=== PATIENT | male | born 1980 | race Caucasian/White ===

== ENCOUNTER 2017-07-04 13:17 | Emergency (ER) | payer OTHER ==
[~2017-07-04] VITALS: Ht 177.8 cm; Wt 63.5 kg
[~2017-07-04 13:17] MED LIST: ADDERALL30 MG PO; BENADRYL25 MG PO; CATAFLAM50 MG PO; CLEOCIN HCL150 MG PO; CLINDAMYCIN150 MG PO; FLUCONAZOLE100 MG PO; HYDROCODONE BIT1 T11 PO; KEFLEX500 MG PO; LOMOTIL 0.025 M1 TA1 PO; MOTRIN600 MG PO; MOTRIN800 MG PO; NAPROSYN500 MG PO; NKHM; PEN-VEE K500 MG PO; PREDNICOT20 MG PO; PREDNISONE10 MG PO; PREDNISONE20 M1 PO; PRILOSEC20 MG PO; TRAMADOL HCL50 MG PO; ULTRAM50 MG PO; VICODIN ES 7501 TAB PO; XANAX0.25 MG PO; ZOFRAN ODT4 MG SL
[2017-07-04 14:51] LABS: BASO # 0.1 10*3/uL (0.0-0.1); BASO % 0.6 % (0.0-1.0); EOS # 0.3 10*3/uL (0.0-0.4); EOS % 3.2 % (1.0-4.0); HEMATOCRIT 42.8 % (42.0-52.0); HEMOGLOBIN 15.3 g/dl (14.0-18.0); LYMPH # 2.3 10*3/uL (1.3-4.4); LYMPH % 26.6 % (27.0-41.0); MEAN CELL VOLUME 94.7 fl (80.0-94.0); MEAN CORPUSCULAR HGB 33.8 pg (27.0-31.0); MEAN CORPUSCULAR HGB CONC 35.7 g/dl (33.0-37.0); MEAN PLATELET VOLUME 9.9 fl (9.6-12.3); MONO # 0.8 10*3/uL (0.1-1.0); MONO % 9.4 % (3.0-9.0); NEUT # 5.2 10*3/uL (2.3-7.9); PLATELET COUNT AUTOMATED 192 10*3/uL (130-400); RED BLOOD COUNT 4.52 10*6/uL (4.50-5.90); RED CELL DISTRI WIDTH 11.4 % (0-14.5); WHITE BLOOD COUNT 8.7 10*3/uL (4.8-10.8)
[2017-07-04 15:05] LABS: ALKALINE PHOSPHATASE 90 U/L (45-117); BUN 14 mg/dl (7-24); CHLORIDE 106 mmol/L (98-107); POTASSIUM 4.2 mmol/L (3.5-5.1); SGOT/AST 20 IU/L (3-35); SGPT/ALT 25 U/L (12-78); SODIUM 139 mmol/L (136-145)
[2017-07-04] MEDS ORDERED: PERCOCET 5-3251 EACH PO (15:14)
[2017-07-04] MEDS ORDERED: ZOFRAN4 MG PO (15:14)
[2017-07-04] MEDS ORDERED: SEPTDS PO (15:14)
[2017-07-04 15:20] LABS: BILIRUBIN NEGATIVE (NEGATIVE); BLOOD TRACE-LYSED (NEGATIVE); CLARITY SL CLOUDY (CLEAR); COLOR YELLOW (YELLOW); GLUCOSE NEGATIVE (NEGATIVE); KETONE NEGATIVE (NEGATIVE); LEUKO ESTERASE NEGATIVE (NEGATIVE); NITRITE NEGATIVE (NEGATIVE); PH 6.5 (5.0-9.0); SPECIFIC GRAVITY <= 1.005 (1.005-1.030); UROBILINOGEN 0.2 E.U./dl (0.2-1.0)
[2017-07-04 15:36] LABS: BACTERIA 1+; EPITHELIAL CELLS 0-2; RBC 0-2 rbc/hpf (0-2)
[2017-07-04 15:37] LABS: FINE GRANULAR CAST 0-2
== END 2017-07-04 15:42 | disposition home or self-care (01) ==
LOC: ED 13:17
PROVIDERS: Nurse Practitioner Family
DX: N20.0 Calculus of kidney (principal); R03.0 Elevated blood-pressure reading, without diagnosis of hypertension; F17.200 Nicotine dependence, unspecified, uncomplicated; Z79.899 Other long term (current) drug therapy

== ENCOUNTER 2017-07-22 19:47 | Emergency (ER) | payer OTHER ==
[~2017-07-22] VITALS: Ht 177.8 cm; Wt 63.5 kg
[~2017-07-22 19:47] MED LIST changes: +PERCOCET 5-3251 EACH PO; +SEPTDS PO; +ZOFRAN4 MG PO
== END 2017-07-22 22:24 | disposition home or self-care (01) ==
LOC: ED 19:47
DX: M25.461 Effusion, right knee (principal); R60.0 Localized edema; M25.571 Pain in right ankle and joints of right foot; F17.200 Nicotine dependence, unspecified, uncomplicated; Z79.899 Other long term (current) drug therapy; W10.8XXA Fall (on) (from) other stairs and steps, initial encounter; Y93.89 Activity, other specified; Y92.89 Other specified places as the place of occurrence of the external cause; Y99.9 Unspecified external cause status

== ENCOUNTER 2017-09-21 16:29 | Emergency (ER) | payer SELFPAY ==
[~2017-09-21] VITALS: Ht 177.8 cm; Wt 63.5 kg
[2017-09-21 16:49] LABS: BASO # 0.1 10*3/uL (0.0-0.1); BASO % 0.5 % (0.0-1.0); EOS # 0.2 10*3/uL (0.0-0.4); EOS % 1.9 % (1.0-4.0); HEMATOCRIT 46.2 % (42.0-52.0); HEMOGLOBIN 16.6 g/dl (14.0-18.0); LYMPH # 2.9 10*3/uL (1.3-4.4); LYMPH % 24.8 % (27.0-41.0); MEAN CELL VOLUME 95.1 fl (80.0-94.0); MEAN CORPUSCULAR HGB 34.2 pg (27.0-31.0); MEAN CORPUSCULAR HGB CONC 35.9 g/dl (33.0-37.0); MEAN PLATELET VOLUME 9.8 fl (9.6-12.3); MONO # 0.6 10*3/uL (0.1-1.0); MONO % 5.4 % (3.0-9.0); NEUT # 7.8 10*3/uL (2.3-7.9); NEUT % 67.1 % (47.0-73.0); PLATELET COUNT AUTOMATED 233 10*3/uL (130-400); RED BLOOD COUNT 4.86 10*6/uL (4.50-5.90); RED CELL DISTRI WIDTH 11.6 % (0-14.5); WHITE BLOOD COUNT 11.6 10*3/uL (4.8-10.8)
[2017-09-21 17:03] LABS: ACT PARTIAL THROMBO TIME 25.8 SECONDS (20.8-31.5)
[2017-09-21 17:09] LABS: ALBUMIN 4.2 gm/dl (3.1-4.5); ALKALINE PHOSPHATASE 97 U/L (45-117); BUN 18 mg/dl (7-24); CHLORIDE 108 mmol/L (98-107); CREATININE 1.02 mg/dL (0.70-1.30); SGOT/AST 19 IU/L (3-35); SGPT/ALT 27 U/L (12-78); SODIUM 142 mmol/L (136-145); TOTAL PROTEIN 7.7 gm/dL (6.4-8.2)
[2017-09-21 17:12] LABS: TROPONIN I < 0.015 ng/ml (<0.045)
== END 2017-09-21 19:11 | disposition home or self-care (01) ==
LOC: ED 16:29
PROVIDERS: Student in an Organized Health Care Education/Training Program
DX: R07.89 Other chest pain (principal); F17.200 Nicotine dependence, unspecified, uncomplicated

== ENCOUNTER 2018-04-05 22:12 | Emergency (ER) | payer SELFPAY ==
[~2018-04-05] VITALS: Ht 180.3 cm; Wt 63.5 kg
[2018-04-05] MEDS ORDERED: PREDNISONE20 M1 PO (22:32)
[2018-04-05] MEDS ORDERED: BENADRYL25 M2 PO (22:32)
== END 2018-04-05 23:39 | disposition home or self-care (01) ==
LOC: ED 22:12
DX: L25.9 Unspecified contact dermatitis, unspecified cause (principal)

== ENCOUNTER 2018-07-19 15:32 | Inpatient (IN) | payer SELFPAY ==
[~2018-07-19] VITALS: Ht 180.3 cm; Wt 68.7 kg
--- NOTE | ~2018-07-19 | EKG ---
[place], [place] ELECTROCARDIOGRAM REPORT NAME: RYAN LAWRENCE UNIT #: [id number] ROOM: 415 DOCTOR: CHERRI DRAFT REPORT BIRTHDATE: [address] [facility] Test Date: 2018-07-19 Test Time: 18:59:32 Pat Name: RYAN LAWRENCE Department: Room: 415 Gender: M [place] City: [place] : 1980 Requested By: ELVIE GAFFNEY Order Number: [id number] Reading MD: Chandana Wharton MD Measurements Intervals [place] Rate: 54 P: 71 WI: 111 QRS: 88 QRSD: 87 T: 58 QT: 418 QTc: 397 Interpretive Statements Sinus rhythm Borderline short WI interval ST elev, probable normal early repol pattern Electronically Signed On 07-21-2018 12:04:19 PST by Chandana Wharton MD CM:EKGRPT:ELECTROCARDIOGRAM REPORT [id number] ELVIE ODOM DRAFT REPORT ELVIE GAFFNEY DO
--- NOTE | ~2018-07-19 | PR ---
[place], [place] PROGRESS NOTE NAME: RYAN LAWRENCE UNIT #: [id number] ROOM: 415 DOCTOR: MOY CHARLES MD BIRTHDATE: [birth year] DOS: 07/20/2018 NEPHROLOGY PROGRESS NOTE TIME OF SERVICE: 10:40 a.m. Follow up of acute kidney injury. SUBJECTIVE: The patient is eating and drinking well. There are no reported complaints otherwise. Continues to deny the use of any illicit drugs recently and unclear how he had cocaine in his urine drug screen from the ER. IV fluids are continuing at this time, but given his oral intake and good urine output, creatinine has slowly improved. No other acute complaints on review of systems identified. PHYSICAL EXAMINATION: VITAL SIGNS: 132/80, 18, 95, 98.0. GENERAL: Awake, alert and oriented, no acute distress, pleasant mood and affect. Speech clear and cogent. Memory is intact. LUNGS: Clear bilaterally. No rales or wheeze. CARDIOVASCULAR: Regular rate. No rub. ABDOMEN: Soft, nontender, no CVA tenderness. EXTREMITIES: No peripheral edema of significance. No muscle tenderness or joint effusions. LABORATORY DATA AND DIAGNOSTICS: White blood cell count 8.2, hemoglobin 12.7, platelets 135. Sodium 143, potassium 4.6, chloride 115, bicarbonate 21, BUN 31, creatinine 4.52 down from 5.42. Urinalysis bland, no proteinuria. Renal ultrasound negative. ASSESSMENT AND PLAN: Acute kidney injury, likely acute tubular necrosis from prerenal causes, status post IV fluids, oral intake now improved. Avoid more protein supplements at this time and we will continue to follow. I would like to see how he does off of IV fluids. After the current bag is completed, discontinue IV fluids and encourage oral solute and fluid intake. If his creatinine continues to improve by the morning, he can be discharged with outpatient BMPs weekly until a peg creatinine is reached. No indication for dialysis or biopsy at this time. I counseled the patient on avoidance of any supplements or NSAIDs, nephrotoxic medications or illicit drug use. [place], [place] PROGRESS NOTE NAME: RYAN LAWRENCE UNIT #: [id number] ROOM: 415 DOCTOR: MOY CHARLES MD BIRTHDATE: [birth year] MOY CHARLES MD CM:DONATO 13 25 MOY CHARLES MD 07/21/[id number] interface
--- NOTE | ~2018-07-19 | EKG ---
[place], [place] ELECTROCARDIOGRAM REPORT NAME: RYAN LAWRENCE UNIT #: [id number] ROOM: 415 DOCTOR: CHERRI DRAFT REPORT BIRTHDATE: [birth year] [facility] Test Date: 2018-07-21 Test Time: 00:58:10 Pat Name: RYAN LAWRENCE Department: Room: 415 2 Gender: M Mat Cutter: Rufino Zayas : 1980 Requested By: NIMISHA PAEZ Order Number: [id number] Reading MD: Chandana Wharton MD Measurements Intervals [place] Rate: 50 P: 65 MN: 107 QRS: 84 QRSD: 90 T: 56 QT: 417 QTc: 381 Interpretive Statements Sinus rhythm Short [place] interval ST elev, probable normal early repol pattern Baseline wander in lead(s) I,II,aVR Electronically Signed On 07-21-2018 12:04:15 PST by Chandana Wharton MD CM:EKGRPT:ELECTROCARDIOGRAM REPORT [id number] NIMISHA PAEZ DO EPIPHANY DRAFT REPORT NIMISHA PAEZ DO
[~2018-07-19 15:32] MED LIST changes: +BENADRYL25 M2 PO
[2018-07-19 15:34] VITALS: BP 145/84
[2018-07-19 15:54] LABS: BILIRUBIN NEGATIVE (NEGATIVE); BLOOD TRACE-INTACT (NEGATIVE); CLARITY CLEAR (CLEAR); COLOR YELLOW (YELLOW); GLUCOSE NEGATIVE (NEGATIVE); KETONE NEGATIVE (NEGATIVE); LEUKO ESTERASE NEGATIVE (NEGATIVE); NITRITE NEGATIVE (NEGATIVE); PH 5.5 (5.0-9.0); UROBILINOGEN 0.2 E.U./dl (0.2-1.0)
[2018-07-19 15:55] LABS: BASO # 0.1 10*3/uL (0.0-0.1); BASO % 0.6 % (0.0-1.0); EOS # 0.3 10*3/uL (0.0-0.4); EOS % 3.5 % (1.0-4.0); HEMATOCRIT 37.8 % (42.0-52.0); HEMOGLOBIN 13.3 g/dl (14.0-18.0); LYMPH # 2.1 10*3/uL (1.3-4.4); LYMPH % 23.2 % (27.0-41.0); MEAN CELL VOLUME 96.4 fl (80.0-94.0); MEAN CORPUSCULAR HGB 33.9 pg (27.0-31.0); MEAN CORPUSCULAR HGB CONC 35.2 g/dl (33.0-37.0); MEAN PLATELET VOLUME 10.3 fl (9.6-12.3); MONO # 0.8 10*3/uL (0.1-1.0); MONO % 8.9 % (3.0-9.0); NEUT # 5.7 10*3/uL (2.3-7.9); NEUT % 63.4 % (47.0-73.0); PLATELET COUNT AUTOMATED 134 10*3/uL (130-400); RED BLOOD COUNT 3.92 10*6/uL (4.50-5.90); RED CELL DISTRI WIDTH 11.5 % (0-14.5)
[2018-07-19 16:08] LABS: BACTERIA TRACE; EPITHELIAL CELLS 0-3
[2018-07-19 16:10] LABS: ALBUMIN 3.6 gm/dl (3.1-4.5); CREATININE 5.42 mg/dL (0.70-1.30); POTASSIUM 4.6 mmol/L (3.5-5.1); TOTAL PROTEIN 6.5 gm/dL (6.4-8.2)
[2018-07-19 16:40] VITALS: BP 141/87
[2018-07-19 17:28] LABS: URINE AMPHETAMINES < 1000 (1000ng/ml); URINE BARBITURATES < 200 (200ng/ml); URINE BENZODIAZEPINES < 200 (200ng/ml); URINE CANNABINOIDS (THC) < 50 (50ng/ml); URINE COCAINE > 300 (300ng/ml); URINE METHADONE < 300 (300ng/ml); URINE OPIATES < 300 (300ng/ml)
[2018-07-19 17:29] LABS: URINE PHENCYCLIDINE < 25 (25ng/ml)
[2018-07-19 17:58] VITALS: BP 119/79
--- NOTE | 2018-07-19 18:14 | NUR ---
PHYSICIAN WAS NOTIFIED OF DR. CHARLES CONSULT. RESPONSE OF NOTIFICATION WAS OK I WILL SEE HIM. DR CHARLES WAS ON THE FLOOR AT TIME OF CONSULT. CHINTAN DIOP
--- NOTE | 2018-07-19 18:25 | NUR ---
A 37, admitted to , under the services of EMANUEL Kellogg DO with a diagnosis of ACUTE RENAL FAILURE. Chief complaint is PAIN. Patient arrived via wheel chair from ER. Monitor applied. Initial assessment completed. Vital signs taken and recorded. EMANUEL KELLOGG DO notified of admission to the unit. Orders received. See assessment for past medical history, medications and allergies. Patient and/or family oriented to unit. [facility] policy reviewed. Clothing/patient valuable form completed. CHINTAN DIPO
--- NOTE | 2018-07-19 18:49 | NUR ---
PT DENIES TAKING ANY HOME MEDS. MED REC UPDATED
[2018-07-19 19:10] VITALS: BP 133/75
[2018-07-19 20:00] VITALS: BP 126/79
--- NOTE | 2018-07-19 22:03 | NUR ---
PT STATES TYLENOL IS EFFECTIVE FOR PAIN. WILL CONTINUE TO MONITOR. ALL SAFETY MEASURES IN PLACE.
[2018-07-19 22:16] LABS: URINE CREATININE RANDOM 70.5 mg/dL
[2018-07-20] VITALS: BP 131/71
--- NOTE | 2018-07-20 04:58 | NUR ---
PATIENT C/O FEELING ACHY AND NAUSEOUS, MEDICATED WITH PO PRN ZOFRAN AND PO PRN TYLENOL, WILL MONITOR FOR EFFECTIVENESS. CALL LIGHT WITHIN REACH.
[2018-07-20 07:08] LABS: BASO % 0.5 % (0.0-1.0); EOS # 0.3 10*3/uL (0.0-0.4); EOS % 3.9 % (1.0-4.0); HEMATOCRIT 36.3 % (42.0-52.0); HEMOGLOBIN 12.7 g/dl (14.0-18.0); LYMPH # 1.8 10*3/uL (1.3-4.4); LYMPH % 22.5 % (27.0-41.0); MEAN CORPUSCULAR HGB 33.6 pg (27.0-31.0); MEAN PLATELET VOLUME 10.7 fl (9.6-12.3); MONO # 0.6 10*3/uL (0.1-1.0); MONO % 7.7 % (3.0-9.0); NEUT # 5.3 10*3/uL (2.3-7.9); NEUT % 65.2 % (47.0-73.0); PLATELET COUNT AUTOMATED 135 10*3/uL (130-400); RED BLOOD COUNT 3.78 10*6/uL (4.50-5.90); RED CELL DISTRI WIDTH 11.4 % (0-14.5); WHITE BLOOD COUNT 8.2 10*3/uL (4.8-10.8)
[2018-07-20 07:16] LABS: ACT PARTIAL THROMBO TIME 25.3 SECONDS (20.8-31.5)
[2018-07-20 07:43] LABS: ALBUMIN 2.9 gm/dl (3.1-4.5); CREATININE 4.52 mg/dL (0.70-1.30); FREE T4 0.98 ng/dl (0.76-1.46); PHOSPHOROUS 3.8 mg/dL (2.5-4.9); POTASSIUM 4.6 mmol/L (3.5-5.1); TOTAL PROTEIN 5.7 gm/dL (6.4-8.2)
[2018-07-20 07:48] LABS: THYROID STIM HORMONE (HS) 1.56 uIU/ml (0.358-4.75)
[2018-07-20 08:00] VITALS: BP 132/80
[2018-07-20 08:41] LABS: VITAMIN D, 25-HYDROXY 13.9 ng/mL (30-100)
--- NOTE | 2018-07-20 09:00 | NUR ---
[employer]el[employer] in to talk to patient. Patient states lives at home with . There are few steps in the home. Physician: elidia avila [facility] Home health services: none Patient's level of ADLs: INDEPENDENT Patient has working utilities: all working DME: none Follow-up physician's appointment after d/c: will be made by hospitalist nurse director upon discharge Does patient want to access PORTAL?: no Discharge plan discussed with patient, patient states he lives at home with and children, he is independent in adls and ambulation. patient states he will be going home when able and denies any home needs. case management discussed with him being self pay, patient stated that his insurance will be ineffect tomorrow Jul,. patient stated that Jasmin from [employer] spoke with him and gave him a form to fill out to help with the hospital stay. patient denies any other needs at this time. CARIDAD FISCHER
[2018-07-20 12:00] VITALS: BP 118/95; BP 130/87
[2018-07-20 16:00] VITALS: BP 142/81
--- NOTE | 2018-07-20 18:20 | NUR ---
PATIENT MEDICATED WITH TYLENOL AND ZOFRAN AT THIS TIME FOR COMPLAINTS OF STOMACH PAIN AND NAUSEA.
[2018-07-20 20:00] VITALS: BP 139/81
[2018-07-21] VITALS: BP 143/82
--- NOTE | 2018-07-21 00:48 | NUR ---
DR PAEZ NOTIFIED OF PT'S C/O A SHOOTING PAIN THAT STARTED IN HIS LOWER RT ABDOMINAL AREA AND SHOT ACROSS HIS CHEST TO HIS LT SHOULDER. PT REPORTS BEING SOB AND HAVING A COUGHING FIT. PT DENIES CHEST PAIN AT THE TIME OF ASSESSMENT. DENIES DIZZINESS/LIGHTHEADEDNESS. SPO2 96% ON ROOM AIR, VITALS STABLE.
[2018-07-21 03:43] LABS: BASO # 0.1 10*3/uL (0.0-0.1); BASO % 0.5 % (0.0-1.0); EOS # 0.4 10*3/uL (0.0-0.4); EOS % 3.5 % (1.0-4.0); HEMATOCRIT 36.2 % (42.0-52.0); HEMOGLOBIN 13.2 g/dl (14.0-18.0); LYMPH % 19.2 % (27.0-41.0); MEAN CELL VOLUME 94.3 fl (80.0-94.0); MEAN CORPUSCULAR HGB 34.4 pg (27.0-31.0); MEAN CORPUSCULAR HGB CONC 36.5 g/dl (33.0-37.0); MEAN PLATELET VOLUME 10.7 fl (9.6-12.3); MONO # 0.8 10*3/uL (0.1-1.0); MONO % 7.7 % (3.0-9.0); NEUT # 7.2 10*3/uL (2.3-7.9); NEUT % 68.8 % (47.0-73.0); PLATELET COUNT AUTOMATED 155 10*3/uL (130-400); RED BLOOD COUNT 3.84 10*6/uL (4.50-5.90); RED CELL DISTRI WIDTH 11.3 % (0-14.5); WHITE BLOOD COUNT 10.4 10*3/uL (4.8-10.8)
[2018-07-21 03:54] LABS: CREATININE 3.97 mg/dL (0.70-1.30); POTASSIUM 4.5 mmol/L (3.5-5.1)
[2018-07-21 08:00] VITALS: BP 120/82; BP 125/78
[2018-07-21 12:00] VITALS: BP 133/82
--- NOTE | 2018-07-21 15:43 | NUR ---
SPOKE WITH DR. CASTILLO AT THIS TIME ABOUT PATIENTS CONCERN WITH PATIENT PLAN OF CARE. DR. CASTILLO STATED THAT THE PATIENT IS IMPROVING AND HE DOESNT THINK THE PATIENT NEEDS TO BE IN THE HOSPITAL ANY LONGER. STATED TO ENCOURAGE PO FLUIDS AND THAT THE PATIENT WILL NEED A WEEKLY BMP ON DISCHRAGE.
--- NOTE | 2018-07-21 15:50 | NUR ---
UPDATED PATIENT'S FAMILY ON PLANS PER DR. CHARLES. FAMILY STATED THEY WANT TO TALK TO HOSPITALIST DOCTOR. DR. GASPAR CALLED, STATED SHE WILL COME TALK TO PATIENT'S FAMILY.
[2018-07-21 16:00] VITALS: BP 168/89
--- NOTE | 2018-07-21 18:04 | NUR ---
Discharge instructions reviewed with patient/family. Patient receptive and verbalizes understanding. Follow-up care arranged. Written instructions given to patient/family. WENT OVER DISCHRAGE PACKET WITH PATIENT. PATIENT AWARE OF THE NEED TO GET OUTPATIENT LABS ON 07/24/17. PATIENT ALSO AWARE OF HIS FOLLOW UP APPOINTMENT WITH CHRISTOPHER GARCIA NP. IV REMOVED, PATIENT TOLERATED WELL. HEART MONITOR REMOVED AND PLACED IN NURSES STATION. PATIENT DENIES ANY NEEDS OR CONPLAINTS AT THIS TIME. PATIENT AMBULATED OFF OF FLOOR WITH FAMILY AT THIS TIME. RUSS RIVERS
[2019-02-20] MEDS ORDERED: CEPHALEXIN500 M1 PO (20:31)
[2019-02-20] MEDS ORDERED: LOTRISONE 0.05%45 GM T (20:36)
== END 2018-07-21 18:25 | disposition home or self-care (01) | DRG 684 ==
LOC: ED 15:32 → EDHOLD 16:30 → 4E 18:26
PROVIDERS: Internal Medicine; Internal Medicine Nephrology; Nurse Practitioner Family; ADMIT Internal Medicine
DX: N17.0 Acute kidney failure with tubular necrosis (principal); R00.1 Bradycardia, unspecified; D72.810 Lymphocytopenia; R31.29 Other microscopic hematuria; F17.210 Nicotine dependence, cigarettes, uncomplicated; D53.9 Nutritional anemia, unspecified; E87.8 Other disorders of electrolyte and fluid balance, not elsewhere classified; R89.7 Abnormal histological findings in specimens from other organs, systems and tissues; F14.10 Cocaine abuse, uncomplicated; F32.9 Major depressive disorder, single episode, unspecified; E83.41 Hypermagnesemia; Z71.6 Tobacco abuse counseling; Z87.442 Personal history of urinary calculi

== ENCOUNTER → 2018-07-23 | Outpatient (CLI) | payer BC ==
[2018-07-23 18:44] LABS: CREATININE 2.23 mg/dL (0.70-1.30); POTASSIUM 3.8 mmol/L (3.5-5.1)
== END | disposition home or self-care (01) ==
LOC: LAB 17:59
PROVIDERS: Student in an Organized Health Care Education/Training Program
DX: N17.0 Acute kidney failure with tubular necrosis (principal)

== ENCOUNTER 2019-01-02 12:48 | Emergency (ER) | payer BC ==
[~2019-01-02] VITALS: Ht 180.3 cm; Wt 63.5 kg
[2019-02-20] MEDS ORDERED: CEPHALEXIN500 M1 PO (20:31)
[2019-02-20] MEDS ORDERED: LOTRISONE 0.05%45 GM T (20:36)
[2019-03-12] MEDS ORDERED: TEMOVATE30 GM T ×2 (13:16→13:19)
== END 2019-01-02 14:10 | disposition home or self-care (01) ==
LOC: ED 12:48
DX: S69.92XA Unspecified injury of left wrist, hand and finger(s), initial encounter (principal); F17.210 Nicotine dependence, cigarettes, uncomplicated; W23.0XXA Caught, crushed, jammed, or pinched between moving objects, initial encounter; Y93.89 Activity, other specified; Y92.89 Other specified places as the place of occurrence of the external cause; Y99.8 Other external cause status

== ENCOUNTER 2019-02-22 18:01 | Emergency (ER) | payer BC ==
[~2019-02-22] VITALS: Ht 180.3 cm; Wt 65.8 kg
[~2019-02-22 18:01] MED LIST changes: +CEPHALEXIN500 M1 PO; +LOTRISONE 0.05%45 GM T
== END 2019-02-22 19:46 | disposition home or self-care (01) ==
LOC: ED 18:01
DX: T69.022A Immersion foot, left foot, initial encounter (principal); F17.210 Nicotine dependence, cigarettes, uncomplicated; Y92.89 Other specified places as the place of occurrence of the external cause

== ENCOUNTER 2019-04-18 17:24 | Emergency (ER) | payer BC ==
[~2019-04-18] VITALS: Wt 79.4 kg
[~2019-04-18 17:24] MED LIST changes: +TEMOVATE30 GM T
[2019-04-18] MEDS ORDERED: CEPHALEXIN500 M1 PO (17:41)
[2019-04-18] MEDS ORDERED: IBUPROFEN600 MG PO (19:29)
== END 2019-04-18 19:54 | disposition home or self-care (01) ==
LOC: ED 17:24
DX: S60.221A Contusion of right hand, initial encounter (principal); F17.210 Nicotine dependence, cigarettes, uncomplicated; X58.XXXA Exposure to other specified factors, initial encounter; Y93.89 Activity, other specified; Y92.098 Other place in other non-institutional residence as the place of occurrence of the external cause; Y99.8 Other external cause status

== ENCOUNTER 2021-07-13 16:01 | Emergency (ER) | payer OTHER ==
[~2021-07-13] VITALS: Wt 675.9 kg
[~2021-07-13 16:01] MED LIST changes: +IBUPROFEN600 MG PO
[2021-07-13] MEDS ORDERED: IBUPROFEN600 MG PO (20:48)
[2021-07-13] MEDS ORDERED: METHOCARBAMOL500 M1 PO (20:48)
== END 2021-07-13 20:49 | disposition home or self-care (01) ==
LOC: ED 16:01
DX: S13.4XXA Sprain of ligaments of cervical spine, initial encounter (principal); S63.591A Other specified sprain of right wrist, initial encounter; S43.491A Other sprain of right shoulder joint, initial encounter; X58.XXXA Exposure to other specified factors, initial encounter; Y93.89 Activity, other specified; Y92.89 Other specified places as the place of occurrence of the external cause; Y99.9 Unspecified external cause status

== ENCOUNTER 2021-09-20 06:37 | Emergency (ER) | payer OTHER ==
[~2021-09-20] VITALS: Ht 177.8 cm; Wt 77.1 kg
[~2021-09-20 06:37] MED LIST changes: +METHOCARBAMOL500 M1 PO
[2021-09-20] MEDS ORDERED: CYCLOBENZAPRINE5 M3 PO (07:56)
[2021-09-20] MEDS ORDERED: PREDNISONE50 MG PO (07:56)
== END 2021-09-20 08:27 | disposition home or self-care (01) ==
LOC: ED 06:37
DX: M62.838 Other muscle spasm (principal); M54.12 Radiculopathy, cervical region; F17.210 Nicotine dependence, cigarettes, uncomplicated

== ENCOUNTER 2021-12-13 13:31 | Emergency (ER) | payer OTHER ==
[~2021-12-13] VITALS: Ht 180.3 cm; Wt 63.5 kg
[~2021-12-13 13:31] MED LIST changes: +CYCLOBENZAPRINE5 M3 PO; +PREDNISONE50 MG PO
[2021-12-13] MEDS ORDERED: TERBINAFINE15 GM T (16:27)
== END 2021-12-13 16:33 | disposition home or self-care (01) ==
LOC: ED 13:31
DX: B35.3 Tinea pedis (principal)

== ENCOUNTER 2021-12-18 21:56 | Emergency (ER) | payer OTHER ==
[~2021-12-18 21:56] MED LIST changes: +TERBINAFINE15 GM T
[2021-12-18 23:07] LABS: BASO # 0.1 10*3/uL (0.0-0.1); BASO % 0.6 % (0.0-1.0); EOS # 0.4 10*3/uL (0.0-0.4); EOS % 3.5 % (1.0-4.0); HEMATOCRIT 43.5 % (42.0-52.0); LYMPH # 2.6 10*3/uL (1.3-4.4); LYMPH % 24.6 % (27.0-41.0); MEAN CELL VOLUME 93.3 fl (80.0-94.0); MEAN CORPUSCULAR HGB 33.3 pg (27.0-31.0); MEAN CORPUSCULAR HGB CONC 35.6 g/dl (33.0-37.0); MEAN PLATELET VOLUME 10.2 fl (9.6-12.3); MONO # 0.6 10*3/uL (0.1-1.0); MONO % 5.8 % (3.0-9.0); NEUT % 65.2 % (47.0-73.0); PLATELET COUNT AUTOMATED 202 10*3/uL (130-400); RED BLOOD COUNT 4.66 10*6/uL (4.50-5.90); RED CELL DISTRI WIDTH 11.4 % (0-14.5); WHITE BLOOD COUNT 10.7 10*3/uL (4.8-10.8)
[2021-12-18 23:23] LABS: ALKALINE PHOSPHATASE 93 U/L (45-117); BUN 17 mg/dl (7-24); CHLORIDE 107 mmol/L (98-107); POTASSIUM 3.2 mmol/L (3.5-5.1); SGOT/AST 20 IU/L (3-35); SGPT/ALT 29 U/L (12-78); SODIUM 139 mmol/L (136-145); TOTAL PROTEIN 7.4 gm/dL (6.4-8.2)
[2021-12-19] MEDS ORDERED: ZOFRAN4 MG PO (00:50)
== END 2021-12-19 01:06 | disposition home or self-care (01) ==
LOC: ED 21:56
PROVIDERS: Internal Medicine
DX: B34.9 Viral infection, unspecified (principal); Z20.822 Contact with and (suspected) exposure to COVID-19; F12.90 Cannabis use, unspecified, uncomplicated; F14.90 Cocaine use, unspecified, uncomplicated

== ENCOUNTER 2022-02-12 19:16 | Emergency (ER) | payer OTHER ==
[~2022-02-12] VITALS: Ht 180.3 cm; Wt 63.5 kg
[2022-02-12] MEDS ORDERED: PREDNISONE20 M1 PO (20:32)
== END 2022-02-12 21:44 | disposition home or self-care (01) ==
LOC: ED 19:16
DX: L23.7 Allergic contact dermatitis due to plants, except food (principal)

== ENCOUNTER 2022-05-07 16:10 | Emergency (ER) | payer OTHER | END 2022-05-07 17:47 | disposition home or self-care (01) | LOC: ED 16:10 | DX: S90.31XA Contusion of right foot, initial encounter (principal); F17.210 Nicotine dependence, cigarettes, uncomplicated; W22.8XXA Striking against or struck by other objects, initial encounter; Y93.89 Activity, other specified; Y92.89 Other specified places as the place of occurrence of the external cause; Y99.8 Other external cause status ==

== ENCOUNTER 2022-08-02 08:50 | Emergency (ER) | payer OTHER ==
[~2022-08-02] VITALS: Ht 180.3 cm; Wt 63.5 kg
[2022-08-02] MEDS ORDERED: PREDNISONE50 MG PO (10:55)
== END 2022-08-02 11:21 | disposition home or self-care (01) ==
LOC: ED 08:50
DX: M77.8 Other enthesopathies, not elsewhere classified (principal); F17.210 Nicotine dependence, cigarettes, uncomplicated

== ENCOUNTER 2022-09-10 09:34 | Emergency (ER) | payer OTHER ==
[~2022-09-10] VITALS: Ht 180.3 cm; Wt 63.5 kg
[2022-09-10 10:29] LABS: BASO # 0.1 10*3/uL (0.0-0.1); BASO % 0.8 % (0.0-1.0); EOS # 0.4 10*3/uL (0.0-0.4); EOS % 4.7 % (1.0-4.0); HEMATOCRIT 46.4 % (42.0-52.0); LYMPH # 2.3 10*3/uL (1.3-4.4); MEAN CELL VOLUME 96.9 fl (80.0-94.0); MEAN CORPUSCULAR HGB 34.2 pg (27.0-31.0); MEAN CORPUSCULAR HGB CONC 35.3 g/dl (33.0-37.0); MEAN PLATELET VOLUME 9.6 fl (9.6-12.3); MONO # 0.5 10*3/uL (0.1-1.0); MONO % 6.3 % (3.0-9.0); NEUT # 4.4 10*3/uL (2.3-7.9); NEUT % 57.8 % (47.0-73.0); PLATELET COUNT AUTOMATED 225 10*3/uL (130-400); RED BLOOD COUNT 4.79 10*6/uL (4.50-5.90); RED CELL DISTRI WIDTH 11.4 % (0-14.5); WHITE BLOOD COUNT 7.6 10*3/uL (4.8-10.8)
[2022-09-10 10:44] LABS: ALKALINE PHOSPHATASE 99 U/L (46-116); BUN 11 mg/dl (9-23); CHLORIDE 108 mmol/L (98-107); LIPASE 40 U/L (12-53); POTASSIUM 3.8 mmol/L (3.4-5.1); SGPT/ALT 17 U/L (10-49); TOTAL PROTEIN 7.2 gm/dL (6.0-8.0)
[2022-09-10 11:03] LABS: BILIRUBIN Negative (Negative); BLOOD Negative (Negative); CLARITY Clear (Clear); COLOR Yellow (Yellow); GLUCOSE Negative (Negative); KETONE Negative (Negative); LEUKO ESTERASE Negative (Negative); NITRITE Negative (Negative); UROBILINOGEN 0.2 E.U./dl (0.0-1.0)
[2022-09-10 11:18] LABS: EPITHELIAL CELLS 0-2; WBC 0-2 wbc/hpf (0-5)
== END 2022-09-10 11:28 | disposition home or self-care (01) ==
LOC: ED 09:34
PROVIDERS: Family Medicine
DX: Z00.00 Encounter for general adult medical examination without abnormal findings (principal); F32.A Depression, unspecified; F17.200 Nicotine dependence, unspecified, uncomplicated

== ENCOUNTER 2022-10-03 20:15 | Emergency (ER) | payer OTHER ==
[~2022-10-03] VITALS: Ht 180.3 cm; Wt 63.5 kg
[2022-10-04] MEDS ORDERED: AMOXICILLIN500 M2 PO (00:18)
== END 2022-10-04 00:30 | disposition home or self-care (01) ==
LOC: ED 20:15
DX: M27.2 Inflammatory conditions of jaws (principal); F17.200 Nicotine dependence, unspecified, uncomplicated

== ENCOUNTER 2022-12-25 09:54 | Emergency (ER) | payer OTHER ==
[~2022-12-25] VITALS: Ht 180.3 cm; Wt 63.5 kg
[~2022-12-25 09:54] MED LIST changes: +AMOXICILLIN500 M2 PO
[2022-12-25] MEDS ORDERED: PREDNISONE50 MG PO (11:32)
[2022-12-25] MEDS ORDERED: CYCLOBENZAPRINE10 MG PO (11:32)
== END 2022-12-25 11:34 | disposition home or self-care (01) ==
LOC: ED 09:54
DX: S16.1XXA Strain of muscle, fascia and tendon at neck level, initial encounter (principal); S39.012A Strain of muscle, fascia and tendon of lower back, initial encounter; F17.210 Nicotine dependence, cigarettes, uncomplicated; Z79.2 Long term (current) use of antibiotics; Z79.899 Other long term (current) drug therapy; W31.89XA Contact with other specified machinery, initial encounter; Y93.89 Activity, other specified; Y92.89 Other specified places as the place of occurrence of the external cause; Y99.8 Other external cause status

== ENCOUNTER 2023-01-02 06:26 | Emergency (ER) | payer OTHER ==
[~2023-01-02] VITALS: Ht 180.3 cm; Wt 63.5 kg
[~2023-01-02 06:26] MED LIST changes: +CYCLOBENZAPRINE10 MG PO
[2023-01-02 07:02] LABS: BASO % 0.5 % (0.0-1.0); EOS # 0.3 10*3/uL (0.0-0.4); EOS % 3.8 % (1.0-4.0); HEMATOCRIT 45.6 % (42.0-52.0); LYMPH # 2.7 10*3/uL (1.3-4.4); LYMPH % 32.6 % (27.0-41.0); MEAN CELL VOLUME 98.5 fl (80.0-94.0); MEAN CORPUSCULAR HGB CONC 35.5 g/dl (33.0-37.0); MEAN PLATELET VOLUME 9.6 fl (9.6-12.3); MONO # 0.5 10*3/uL (0.1-1.0); MONO % 5.7 % (3.0-9.0); NEUT # 4.7 10*3/uL (2.3-7.9); NEUT % 56.7 % (47.0-73.0); PLATELET COUNT AUTOMATED 166 10*3/uL (130-400); RED BLOOD COUNT 4.63 10*6/uL (4.50-5.90); WHITE BLOOD COUNT 8.2 10*3/uL (4.8-10.8)
[2023-01-02 07:26] LABS: ALKALINE PHOSPHATASE 70 U/L (46-116); BUN 15 mg/dl (9-23); CHLORIDE 106 mmol/L (98-107); POTASSIUM 3.6 mmol/L (3.4-5.1); SGPT/ALT 22 U/L (10-49); TOTAL PROTEIN 6.7 gm/dL (6.0-8.0)
[2023-01-02] MEDS ORDERED: PREDNISONE10 MG PO (11:37)
[2023-01-02] MEDS ORDERED: ONDANSETRON4 MG SL (11:37)
== END 2023-01-02 11:42 | disposition home or self-care (01) ==
LOC: ED 06:26
PROVIDERS: Internal Medicine
DX: S16.1XXA Strain of muscle, fascia and tendon at neck level, initial encounter (principal); S39.012A Strain of muscle, fascia and tendon of lower back, initial encounter; K62.5 Hemorrhage of anus and rectum; F17.210 Nicotine dependence, cigarettes, uncomplicated; W22.8XXA Striking against or struck by other objects, initial encounter; Y93.89 Activity, other specified; Y92.89 Other specified places as the place of occurrence of the external cause; Y99.8 Other external cause status

== ENCOUNTER 2023-05-07 22:00 | Emergency (ER) | payer OTHER ==
[~2023-05-07] VITALS: Ht 180.3 cm; Wt 63.5 kg
[~2023-05-07 22:00] MED LIST changes: +ONDANSETRON4 MG SL
[2023-05-08] MEDS ORDERED: SEPTDS PO (00:52)
== END 2023-05-08 01:00 | disposition home or self-care (01) ==
LOC: ED 22:00
DX: L02.811 Cutaneous abscess of head [any part, except face] (principal); F32.A Depression, unspecified; F17.200 Nicotine dependence, unspecified, uncomplicated

== ENCOUNTER → 2023-05-16 | Outpatient (CLI) | payer MEDICAID ==
[~2023-05-16] MED LIST changes: +TIZANIDINE HCL4 MG PO
== END | disposition home or self-care (01) ==
LOC: WOUNDCARE 02:01
PROVIDERS: ATTEND Nurse Practitioner Family
DX: L02.11 Cutaneous abscess of neck (principal); L03.221 Cellulitis of neck; L98.492 Non-pressure chronic ulcer of skin of other sites with fat layer exposed; A49.02 Methicillin resistant Staphylococcus aureus infection, unspecified site; M54.2 Cervicalgia; F17.200 Nicotine dependence, unspecified, uncomplicated

== ENCOUNTER → 2023-05-22 | Outpatient (CLI) | payer MEDICAID | END | disposition home or self-care (01) | LOC: WOUNDCARE 01:14 | PROVIDERS: ATTEND Nurse Practitioner Family | DX: L02.11 Cutaneous abscess of neck (principal); L03.221 Cellulitis of neck; A49.02 Methicillin resistant Staphylococcus aureus infection, unspecified site; M54.2 Cervicalgia; F17.200 Nicotine dependence, unspecified, uncomplicated ==

== ENCOUNTER → 2023-05-29 | Outpatient (CLI) | payer MEDICAID | END | disposition home or self-care (01) | LOC: WOUNDCARE 01:24 | PROVIDERS: ATTEND Nurse Practitioner Family | DX: L02.11 Cutaneous abscess of neck (principal); L03.221 Cellulitis of neck; L98.492 Non-pressure chronic ulcer of skin of other sites with fat layer exposed; A49.02 Methicillin resistant Staphylococcus aureus infection, unspecified site; M54.2 Cervicalgia; F17.200 Nicotine dependence, unspecified, uncomplicated ==

== ENCOUNTER → 2023-06-04 | Outpatient (CLI) | payer MEDICAID | END | disposition home or self-care (01) | LOC: WOUNDCARE 01:21 | PROVIDERS: ATTEND Nurse Practitioner Family | DX: L02.11 Cutaneous abscess of neck (principal); L03.221 Cellulitis of neck; A49.02 Methicillin resistant Staphylococcus aureus infection, unspecified site; M54.2 Cervicalgia; F17.290 Nicotine dependence, other tobacco product, uncomplicated; Z79.899 Other long term (current) drug therapy ==

== ENCOUNTER 2023-07-12 23:41 | Emergency (ER) | payer OTHER ==
[~2023-07-12] VITALS: Ht 180.3 cm; Wt 63.5 kg
[2023-07-13 01:20] LABS: BASO # 0.1 10*3/uL (0.0-0.1); BASO % 0.6 % (0.0-1.0); EOS # 0.4 10*3/uL (0.0-0.4); EOS % 3.9 % (1.0-4.0); HEMATOCRIT 45.1 % (42.0-52.0); LYMPH # 2.2 10*3/uL (1.3-4.4); MEAN CELL VOLUME 96.2 fl (80.0-94.0); MEAN CORPUSCULAR HGB 34.1 pg (27.0-31.0); MEAN CORPUSCULAR HGB CONC 35.5 g/dl (33.0-37.0); MONO # 0.7 10*3/uL (0.1-1.0); MONO % 7.5 % (3.0-9.0); NEUT # 6.3 10*3/uL (2.3-7.9); NEUT % 64.7 % (47.0-73.0); PLATELET COUNT AUTOMATED 176 10*3/uL (130-400); RED BLOOD COUNT 4.69 10*6/uL (4.50-5.90); WHITE BLOOD COUNT 9.8 10*3/uL (4.8-10.8)
[2023-07-13 01:44] LABS: ALKALINE PHOSPHATASE 85 U/L (46-116); BUN 12 mg/dl (9-23); CHLORIDE 106 mmol/L (98-107); POTASSIUM 3.4 mmol/L (3.4-5.1); SGPT/ALT 28 U/L (5-49); TOTAL PROTEIN 7.1 gm/dL (6.0-8.0)
[2023-07-13] MEDS ORDERED: ONDANSETRON4 MG SL (04:07)
== END 2023-07-13 04:38 | disposition home or self-care (01) ==
LOC: ED 23:41
PROVIDERS: Emergency Medicine
DX: K52.9 Noninfective gastroenteritis and colitis, unspecified (principal); Z20.822 Contact with and (suspected) exposure to COVID-19; R11.10 Vomiting, unspecified; F32.A Depression, unspecified; F17.210 Nicotine dependence, cigarettes, uncomplicated; Z87.442 Personal history of urinary calculi

== ENCOUNTER 2024-10-27 07:18 | Emergency (ER) | payer OTHER ==
[~2024-10-27] VITALS: Ht 180.3 cm; Wt 63.5 kg
[2024-10-27] MEDS ORDERED: Bacitracin Zinc 14 GM TUBE T ONE (08:15)
[2024-10-27 08:56] LABS: BILIRUBIN Negative (Negative); BLOOD Negative (Negative); CLARITY Cloudy (Clear); COLOR Dark Yellow (Yellow); GLUCOSE Negative (Negative); KETONE Negative (Negative); LEUKO ESTERASE Negative (Negative); NITRITE Negative (Negative); SPECIFIC GRAVITY 1.025 (1.001-1.030)
[2024-10-27 09:31] LABS: MUCOUS 1+
== END 2024-10-27 09:49 | disposition home or self-care (01) ==
LOC: ED 07:18
PROVIDERS: Emergency Medicine
DX: S00.81XA Abrasion of other part of head, initial encounter (principal); S29.9XXA Unspecified injury of thorax, initial encounter; F32.A Depression, unspecified; Z79.899 Other long term (current) drug therapy; Y08.89XA Assault by other specified means, initial encounter; Y93.89 Activity, other specified; Y92.89 Other specified places as the place of occurrence of the external cause; Y99.8 Other external cause status

== ENCOUNTER 2024-12-06 06:12 | Emergency (ER) | payer OTHER ==
[~2024-12-06] VITALS: Ht 180.3 cm; Wt 63.5 kg
[2024-12-06 06:53] LABS: BASO % 0.6 % (0.0-1.0); EOS # 0.3 10*3/uL (0.0-0.4); EOS % 4.7 % (1.0-4.0); HEMATOCRIT 44.7 % (42.0-52.0); MEAN CELL VOLUME 97.2 fl (80.0-94.0); MEAN CORPUSCULAR HGB 34.1 pg (27.0-31.0); MEAN CORPUSCULAR HGB CONC 35.1 g/dl (33.0-37.0); MEAN PLATELET VOLUME 10.1 fl (9.6-12.3); MONO # 0.4 10*3/uL (0.1-1.0); MONO % 6.5 % (3.0-9.0); NEUT # 3.7 10*3/uL (2.3-7.9); NEUT % 54.7 % (47.0-73.0); PLATELET COUNT AUTOMATED 149 10*3/uL (130-400); RED CELL DISTRI WIDTH 11.9 % (0-14.5); WHITE BLOOD COUNT 6.8 10*3/uL (4.8-10.8)
[2024-12-06] MEDS ORDERED: PROCTOZONE-HC30 GM R (07:21)
[2024-12-06 07:27] LABS: BUN 13 mg/dl (9-23); CHLORIDE 108 mmol/L (98-107); POTASSIUM 3.1 mmol/L (3.4-5.1)
== END 2024-12-06 07:25 | disposition home or self-care (01) ==
LOC: ED 06:12
PROVIDERS: Internal Medicine
DX: K64.4 Residual hemorrhoidal skin tags (principal); R10.9 Unspecified abdominal pain; F17.210 Nicotine dependence, cigarettes, uncomplicated